=== PATIENT | male | born 1980 | race Hispanic/Latino ===

== ENCOUNTER 2023-02-05 11:10 | Emergency (ER) | payer SELFPAY ==
--- NOTE | 2023-02-05 11:44 | EDPHYS ---
Physician Documentation [facility] Name: Aldo Rodríguez Age: 43 yrs Sex: Male : 1980 Arrival Date: 02/05/2023 Time: 11:10 Bed DIS3 Private MD: ED Physician Moe De La Rosa HPI: 02/05 11:39 This 43 yrs old Male presents to ER via Ambulatory with complaints of Animal sp3 Bite. 11:39 43-year-old male with no significant past medical history presents with puncture type sp3 wound to the left index finger finger pad that occurred just approximately 3 hours prior to arrival where patient states that a "baby squirrel" bit him as he was trying to help to squirrel. Patient is requesting "rabies shot and tetanus shot". Patient has no systemic symptoms denies fever, proximal hand pain, or any other signs or symptoms on ROS at this time.. Historical: - Allergies: 11:34 No Known Allergies; iw - Immunization history:: Adult Immunizations not up to date. - Social history:: Smoking status: unknown. ROS: 11:40 Constitutional: Negative for fever, chills, and weight loss, Eyes: Negative for injury, sp3 pain, redness, and discharge, ENT: Negative for injury, pain, and discharge, Neck: Negative for injury, pain, and swelling, Cardiovascular: Negative for chest pain, palpitations, and edema, Respiratory: Negative for shortness of breath, cough, wheezing, and pleuritic chest pain, Abdomen/GI: Negative for abdominal pain, nausea, vomiting, diarrhea, and constipation, Back: Negative for injury and pain, Neuro: Negative for headache, weakness, numbness, tingling, and seizure, Psych: Negative for depression, anxiety, suicide ideation, homicidal ideation, and hallucinations, Allergy/Immunology: Negative for hives, rash, and allergies, Endocrine: Negative for neck swelling, polydipsia, polyuria, polyphagia, and marked weight changes, 11:40 All other systems are negative, Exam: 11:40 Constitutional: This is a well developed, well nourished patient who is awake, alert, sp3 and in no acute distress. Head/Face: Normocephalic, atraumatic. Eyes: Pupils equal round and reactive to light, extra-ocular motions intact. Lids and lashes normal. Conjunctiva and sclera are non-icteric and not injected. Cornea within normal limits. Periorbital areas with no swelling, redness, or edema. ENT: Nares patent. No nasal discharge, no septal abnormalities noted. External auditory canals are clear. Oropharynx with no redness, swelling, or masses, exudates, or evidence of obstruction, uvula midline. Mucous membranes moist. Neck: Trachea midline, no thyromegaly or masses palpated, and no cervical lymphadenopathy. Supple, full range of motion without nuchal rigidity, or vertebral point tenderness. No Meningismus. Chest/axilla: Normal chest wall appearance and motion. Nontender with no deformity. No lesions are appreciated. Cardiovascular: Regular rate and rhythm with a normal S1 and S2. No gallops, murmurs, or rubs. Normal PMI, no JVD. No pulse deficits. Respiratory: Lungs have equal breath sounds bilaterally, clear to auscultation and percussion. No rales, rhonchi or wheezes noted. No increased work of breathing, no retractions or nasal flaring. Abdomen/GI: Soft, non-tender, with normal bowel sounds. No distension or tympany. No guarding or rebound. No evidence of tenderness throughout. Back: No spinal tenderness. No costovertebral tenderness. Full range of motion. Neuro: Awake and alert, GCS 15, oriented to person, place, time, and situation. Cranial nerves II-XII grossly intact. Motor strength 5/5 in all extremities. Sensory grossly intact. Cerebellar exam normal. Normal gait. Psych: Awake, alert, with orientation to person, place and time. Behavior, mood, and affect are within normal limits. 11:40 Skin: Puncture type wound noted on the left index finger pad without signs of necrosis, erythema or infection. Normal neurovascular exam noted. No proximal abnormalities on the upper extremity.. Vital Signs: 11:32 BP 132 / 93; Pulse 74; Resp 16; Temp 98.6; Pulse Ox 100% ; Weight 131.09 kg; Height 6 iw ft. 3 in. ; 11:32 Body Mass Index 36.12 (131.09 kg, 190.5 cm) iw MDM: 11:39 Patient medically screened. sp3 11:41 Data reviewed: vital signs, nurses notes. ED course: Patient will receive tetanus and sp3 Augmentin p.o. Directions were given for health department for any rabies prophylaxis that is required. I am not highly suspicious the patient has rabies and I have communicated this with him given the fact that he was in the animal's environment. However I will defer this to the health department.. Administered Medications: 12:23 CANCELLED (Duplicate Order): tetanus toxoid,adsorbed0.5 ml IM once; Provide Vaccine jl7 Information Statement (VIS). 12:23 Drug: Boostrix Tdap IM 0.5 ml IM once; as a single dose Route: IM; Site: right deltoid; jl7 12:23 Follow up: Response: No adverse reaction jl7 Disposition Summary: 02/05/23 11:43 Discharge Ordered Notes: Location: Home sp3 Condition: Stable sp3 Diagnosis - Squirrel bite, puncture wound to left index finger sp3 Followup: sp3 - With: Private Physician - When: Upon discharge from the Emergency Department - Reason: Continuance of care Discharge Instructions: - Discharge Summary Sheet sp3 - Animal Bite, Adult sp3 Forms: - Medication Reconciliation Form sp3 - Thank You Letter sp3 - Antibiotic Education sp3 - Prescription Opioid Use sp3 - Patient Portal Instructions sp3 - Leadership Thank You Letter sp3 Prescriptions: - Augmentin 875-125 mg Oral tablet - take 1 tablet ORAL route every 12 hours for 7 days; 14 tablet; Refills: 0, sp3 Product Selection Permitted Signatures: Maricruz Castro, RN RN iw Romelia Patterson RN RN jl7 Moe De La Rosa MD MD sp3 Corrections: (The following items were deleted from the chart) 12:23 11:43 Tetanus Toxoid,Adsorbed IM 0.5 ml IM once; Provide Vaccine Information Statement jl7 (VIS). ordered. sp3 12:23 12:23 Tetanus Toxoid,Adsorbed IM 0.5 ml IM once; Provide Vaccine Information Statement jl7 (VIS). ordered. jl7
--- NOTE | 2023-02-05 11:44 | ER ---
Nurse's Notes [facility] Name: Aldo Rodríguez Age: 43 yrs Sex: Male : 1980 Arrival Date: 02/05/2023 Time: 11:10 Bed DIS3 Private MD: Diagnosis: Squirrel bite, puncture wound to left index finger Presentation: 02/05 11:32 Chief complaint: Patient states: this morning I saw a baby squirrel injured and i tried iw to pick it up and it bit me, bit him on left index finger and caught him on right hand. Coronavirus screen: At this time, the client does not indicate any symptoms associated with coronavirus-19. Ebola Screen: Patient negative for fever greater than or equal to 101.5 degrees Fahrenheit, and additional compatible Ebola Virus Disease symptoms Patient denies exposure to infectious person. Patient denies travel to an Ebola-affected area in the 21 days before illness onset. No symptoms or risks identified at this time. Initial Sepsis Screen: Does the patient meet any 2 criteria? No. Patient's initial sepsis screen is negative. Does the patient have a suspected source of infection? No. Patient's initial sepsis screen is negative. Risk Assessment: Do you want to hurt yourself or someone else? Patient reports no desire to harm self or others. Onset of symptoms was February 05, 2023. 11:32 Method Of Arrival: Ambulatory iw 11:32 Acuity: SHEYLA 4 iw Historical: - Allergies: 11:34 No Known Allergies; iw - Immunization history:: Adult Immunizations not up to date. - Social history:: Smoking status: unknown. Screenin:45 [facility] ED Fall Risk Assessment (Adult) History of falling in the last 3 months, jl7 including since admission. Abuse screen: Denies threats or abuse. Denies injuries from another. Nutritional screening: No deficits noted. Tuberculosis screening: No symptoms or risk factors identified. Vital Signs: 11:32 BP 132 / 93; Pulse 74; Resp 16; Temp 98.6; Pulse Ox 100% ; Weight 131.09 kg; Height 6 iw ft. 3 in. ; 11:32 Body Mass Index 36.12 (131.09 kg, 190.5 cm) ED Course: 11:13 Patient arrived in ED. mg5 11:16 Moe De La Rosa MD is Attending Physician. sp3 11:33 Triage completed. iw 11:34 Arm band placed on. iw 11:45 Patient has correct armband on for positive identification. Provided Education on: jl7 wound care. 11:45 No provider procedures requiring assistance completed. Patient did not have IV access jl7 during this emergency room visit. 12:01 Romelia Patterson, RN is Primary Nurse. jl7 Administered Medications: 12:23 CANCELLED (Duplicate Order): tetanus toxoid,adsorbed0.5 ml IM once; Provide Vaccine jl7 Information Statement (VIS). 12:23 Drug: Boostrix Tdap IM 0.5 ml IM once; as a single dose Route: IM; Site: right deltoid; jl7 12:23 Follow up: Response: No adverse reaction jl7 Medication: 12:25 Vaccine Information Statement (VIS) provided today. Questions and/or concerns jl7 addressed. VIS edition date: October 30, 2020. Outcome: 11:43 Discharge ordered by MD. sp3 12:24 Discharged to home ambulatory, jl7 12:24 Condition: stable 12:24 Discharge instructions given to patient, Instructed on discharge instructions, follow up and referral plans. medication usage, Demonstrated understanding of instructions, follow-up care, medications, 12:24 Patient left the ED. jl7 Signatures: Maricruz Castro RN RN iw Romelia Patterson RN RN jl7 Moe De La Rosa MD MD sp3 Alla Mckeon mg5 Corrections: (The following items were deleted from the chart) 11:34 11:32 Resp 16bpm; Pulse Ox 100%; Temp 98.6F; iw iw
[2023-02-05] MEDS ORDERED: TDAP (DIPHTH,PERTUSS(ACELL),TET VAC) 0.5 ML VIAL IMVAC ONE (12:20)
[2023-02-05 12:28] VITALS: BP 132/93; TEMP 98.6; O2SAT 100
== END 2023-02-05 12:24 | disposition home or self-care (01) ==
LOC: ER 11:10
DX: S61.231A Puncture wound without foreign body of left index finger without damage to nail, initial encounter (principal); W53.21XA Bitten by squirrel, initial encounter
CPT/HCPCS: 96372; 99284